=== PATIENT | female | born 1940 | race Caucasian/White ===

== ENCOUNTER → 2016-11-04 | Outpatient (REF) | payer MEDICARE ==
[2016-11-04 12:25] LABS: ANION GAP 10.7 MEQ/L (3-15)
== END ==
LOC: LAB 11:51
PROVIDERS: ATTEND Physician Assistant Surgical
DX: R60.0 Localized edema (principal)
CPT/HCPCS: 80048

== ENCOUNTER → 2016-11-18 | Outpatient (REF) | payer MEDICARE ==
[2016-11-18 13:36] LABS: ANION GAP 14.6 MEQ/L (3-15)
== END ==
LOC: LAB 13:14
PROVIDERS: ATTEND Physician Assistant Surgical
DX: I10 Essential (primary) hypertension (principal)
CPT/HCPCS: 80048

== ENCOUNTER 2016-11-24 13:53 | Outpatient (RCR) | payer MEDICARE | END 2016-11-24 15:00 | disposition home or self-care (01) | LOC: OT 13:53 | PROVIDERS: ATTEND Family Medicine | DX: R41.81 Age-related cognitive decline (principal); R41.840 Attention and concentration deficit | CPT/HCPCS: 97165; 97530; G9165; G9166; G9167 ==

== ENCOUNTER → 2016-12-10 | Outpatient (REF) | payer MEDICARE ==
[2016-12-10 11:54] LABS: ALBUMIN 3.6 g/dL (3.4-5.0); ANION GAP 13.7 MEQ/L (3-15); TOTAL PROTEIN 7.4 g/dL (6.4-8.5)
== END ==
LOC: LAB 10:59
PROVIDERS: ATTEND Family Medicine
DX: I10 Essential (primary) hypertension (principal); E03.8 Other specified hypothyroidism; E11.9 Type 2 diabetes mellitus without complications
CPT/HCPCS: 80053; 83036; 84443

== ENCOUNTER → 2016-12-20 | Outpatient (CLI) | payer MEDICARE | LOC: LAB 13:27 | PROVIDERS: ATTEND Family Medicine | DX: K52.9 Noninfective gastroenteritis and colitis, unspecified (principal) | CPT/HCPCS: 87045; 87046; 87507 ==

== ENCOUNTER → 2017-01-07 | Outpatient (REF) | payer MEDICARE ==
[2017-01-07 22:37] LABS: IRON 113 ug/dL (50-170); UNBOUND IRON CONTENT 207 ug/dl (126-382)
== END ==
LOC: LAB 14:48
PROVIDERS: ATTEND Family Medicine
DX: K74.3 Primary biliary cirrhosis (principal); R41.81 Age-related cognitive decline; I10 Essential (primary) hypertension
CPT/HCPCS: 82140; 83516; 83540; 83550; 85652; 86038; 86140